=== PATIENT | male | born 1955 | race Two or more races ===

== ENCOUNTER 2018-11-25 14:22 | Inpatient (IN) | payer MEDICAID ==
[~2018-11-25] VITALS: Ht 172.7 cm; Wt 90.7 kg
[2018-11-25 14:31] VITALS: BP 196/98
--- NOTE | 2018-11-25 14:38 | NUR ---
ED Nurse Note: AMBULATED IN TO ER WITH PT'S DUE TO NASAL CONGESTION X 3 WEEKS. PER PT, HE HAD SOB SINCE LAST NIGHT. RA 98% WITH RR OF 23. INITIAL HIGH BP OF 196/98. DR. Lowry AT THE BEDSIDE.
--- NOTE | 2018-11-25 14:44 | NUR ---
ED Nurse Note: BLOOD SPECIMENS SENT DOWN TO THE LAB.
[2018-11-25 14:46] VITALS: BP 152/92
--- NOTE | 2018-11-25 14:46 | NUR ---
ED Nurse Note: BP IS NOW DOWN TO 152/92. PT DENIES SOB AND CP
[2018-11-25 14:56] LABS: BASOPHILS % (AUTO) 1.6 % (0.0-2.0); EOSINOPHILS % (AUTO) 4.1 % (0.0-3.0); HEMATOCRIT 51.1 % (42.0-52.0); HEMOGLOBIN 17.7 G/DL (14.2-18.0); LYMPHOCYTES % (AUTO) 35.2 % (20.0-45.0); MEAN CORPUSCULAR VOLUME 93 FL (80-99); NEUTROPHILS % (AUTO) 51.2 % (45.0-75.0); PLATELET COUNT 272 K/UL (150-450); RED BLOOD COUNT 5.48 M/UL (4.70-6.10); RED CELL DISTRIBUTION WIDTH 11.6 % (11.6-14.8); WHITE BLOOD COUNT 7.8 K/UL (4.8-10.8)
[2018-11-25 15:05] LABS: ANION GAP 10 mmol/L (5-15); BLOOD UREA NITROGEN 13 mg/dL (7-18); CALCIUM 9.7 MG/DL (8.5-10.1); CARBON DIOXIDE 27 MMOL/L (21-32); CHLORIDE 104 MMOL/L (98-107); CREATININE 1.1 MG/DL (0.55-1.30); POTASSIUM 3.9 MMOL/L (3.5-5.1); SODIUM 141 MMOL/L (136-145)
[2018-11-25 15:18] LABS: ALANINE AMINOTRANSFERASE 44 U/L (12-78); ALBUMIN 3.5 G/DL (3.4-5.0); ALBUMIN/GLOBULIN RATIO 0.8 (1.0-2.7); ALKALINE PHOSPHATASE 118 U/L (46-116); ASPARTATE AMINO TRANSFERASE 30 U/L (15-37); BILIRUBIN,TOTAL 0.6 MG/DL (0.2-1.0); CKMB 1.3 NG/ML (0.0-3.6); CREATINE KINASE 96 U/L (26-308)
--- NOTE | 2018-11-25 15:19 | Diagnostic Imaging Report ---
Indication: Chest pain Technique: One view of the chest Comparison: none Findings: Body habitus limits evaluation. Prominent pericardial fat pad is noted. No definite infiltrates, effusions, or congestion. The heart size is upper limits of normal. Impression: No definite acute process
[2018-11-25 15:47] VITALS: BP 128/77
--- NOTE | 2018-11-25 15:48 | NUR ---
ED Nurse Note: TELEPHONE REPORT GIVEN TO CARMEN ACEVES FROM [facility]. PER CARMEN ACEVES, CAN TRANSFER THE PT IN FIVE MIN.
[2018-11-25 16:00] VITALS: BP_SYST 128; BP_SYST 153; BP_DIAS 77; BP_DIAS 92
[2018-11-25] MEDS ORDERED: Aspirin Baby 81mg ORAL ONE (16:00)
--- NOTE | 2018-11-25 16:03 | NUR ---
TRANSFER TO FLOOR: Patient transferred to ROOM 210-1 as ordered via rney with environmental monitoring specialist. Report given to CARMEN Oconnor. Belongings and money with the pt. No s/s of distress. Skin intact.
--- NOTE | 2018-11-25 16:05 | NUR ---
NURSE NOTES: Received patient via gurney from ER, report given by CARMEN Vega. Patient is awake and oriented x4. No signs and symptoms of acute distress noted at this time. Heart monitor on. Bed in lowest position with two side rails up, break engaged. Call light and bed side table within reach. Will continue to monitor and follow the plan of care.
--- NOTE | 2018-11-25 16:19 | Emergency Room Report ---
History of Present Illness General Chief Complaint: Upper Respiratory Illness Source: Patient Present Illness HPI Patient presents with complaints of chest pain or shortness of breath Patient reports that he has been using Afrin for over the past 10 days He feels that it improves his nasal congestion However now is having increased palpitations Patient presents with fairly hypertensive and tachycardic Denies any back or flank pain denies any headache Denies any vomiting or diarrhea patient does not take any other medications Allergies: Coded Allergies: No Known Allergies (Unverified , 11/25/18) Patient History Past Medical History: see triage record Pertinent Family History: none Reviewed Nursing Documentation: PMH: Agreed; PSxH: Agreed Nursing Documentation-PMH Past Medical History: No Stated History Review of Systems All Other Systems: negative except mentioned in HPI Physical Exam Vital Signs Date Time Temp Pulse Resp B/P (MAP) Pulse Ox O2 Delivery O2 Flow Rate FiO2 11/25/18 14:30 97.5 91 22 196/98 97 Room Air Sp02 EP Interpretation: reviewed, normal General Appearance: no apparent distress Head: normocephalic, atraumatic Eyes: bilateral eye PERRL, bilateral eye EOMI ENT: hearing grossly normal, normal pharynx, TMs + canals normal, uvula midline Neck: full range of motion, supple, no meningismus, no bony tend Respiratory: lungs clear, normal breath sounds, no rhonchi, no respiratory distress, no retraction, no accessory muscle use Cardiovascular #1: normal peripheral pulses, no edema, no gallop, no JVD, no murmur, tachycardia Gastrointestinal: normal bowel sounds, non tender, soft, no mass, no organomegaly, non-distended, no guarding, no hernia, no pulsatile mass, no rebound Genitourinary: no CVA tenderness Musculoskeletal: normal inspection Neurologic: oriented x3, responsive, edge banding machine offbearer III-XII nml as tested, motor strength/ tone normal, sensory intact Psychiatric: mood/affect normal Skin: normal color, no rash, warm/dry, palpation normal Lymphatic: normal inspection, no adenopathy Medical Decision Making Diagnostic Impression: Primary Impression: HYPERTENSIVE MALIGNANCY ER Course Patient is a fairly complex patient with multiple differential to consideration including but not limited to cardiac cardiopulmonary and vascular emergencies Patient also appears to have had a significant reaction to the medication At this time continues to significantly improve throughout his stay Given the initial presentation and the tachycardic and hypotensive findings however patient will require further inpatient care Labs Test 11/25/18 14:40 11/25/18 15:00 White Blood Count 7.8 K/UL (4.8-10.8) Red Blood Count 5.48 M/UL (4.70-6.10) Hemoglobin 17.7 G/DL (14.2-18.0) Hematocrit 51.1 % (42.0-52.0) Mean Corpuscular Volume 93 FL (80-99) Mean Corpuscular Hemoglobin 32.3 PG (27.0-31.0) Mean Corpuscular Hemoglobin Concent 34.6 G/DL (32.0-36.0) Red Cell Distribution Width 11.6 % (11.6-14.8) Platelet Count 272 K/UL (150-450) Mean Platelet Volume 6.9 FL (6.5-10.1) Neutrophils (%) (Auto) 51.2 % (45.0-75.0) Lymphocytes (%) (Auto) 35.2 % (20.0-45.0) Monocytes (%) (Auto) 8.0 % (1.0-10.0) Eosinophils (%) (Auto) 4.1 % (0.0-3.0) Basophils (%) (Auto) 1.6 % (0.0-2.0) Sodium Level 141 MMOL/L (136-145) Potassium Level 3.9 MMOL/L (3.5-5.1) Chloride Level 104 MMOL/L (98-107) Carbon Dioxide Level 27 MMOL/L (21-32) Anion Gap 10 mmol/L (5-15) Blood Urea Nitrogen 13 mg/dL (7-18) Creatinine 1.1 MG/DL (0.55-1.30) Estimat Glomerular Filtration Rate > 60 mL/min (>60) Glucose Level 132 MG/DL (74-106) Calcium Level 9.7 MG/DL (8.5-10.1) Total Bilirubin 0.6 MG/DL (0.2-1.0) Aspartate Amino Transf (AST/SGOT) 30 U/L (15-37) Alanine Aminotransferase (ALT/SGPT) 44 U/L (12-78) Alkaline Phosphatase 118 U/L (46-116) Total Creatine Kinase 96 U/L (26-308) Creatine Kinase MB 1.3 NG/ML (0.0-3.6) Creatine Kinase MB Relative Index 1.3 Troponin I 0.000 ng/mL (0.000-0.056) Pro-B-Type Natriuretic Peptide 65 pg/mL (0-125) Total Protein 7.7 G/DL (6.4-8.2) Albumin 3.5 G/DL (3.4-5.0) Globulin 4.2 g/dL Albumin/Globulin Ratio 0.8 (1.0-2.7) Lipase 149 U/L (73-393) Urine Opiates Screen Negative (NEGATIVE) Urine Barbiturates Screen Negative (NEGATIVE) Phencyclidine (PCP) Screen Negative (NEGATIVE) Urine Amphetamines Screen Negative (NEGATIVE) Urine Benzodiazepines Screen Negative (NEGATIVE) Urine Cocaine Screen Negative (NEGATIVE) Urine Marijuana (THC) Screen Negative (NEGATIVE) EKG Diagnostic Results Rate: normal Rhythm: NSR ST Segments: other - Nonspecific ST T-wave changes Rhythm Strip Diag. Results EP Interpretation: yes Rate: 105 Rhythm: no PVC's, no ectopy, other - Sinus tach Chest X-Ray Diagnostic Results Chest X-Ray Diagnostic Results : Chest X-Ray Ordered: Yes # of Views/Limited/Complete: 1 View Indication: Chest Pain EP Interpretation: Yes Interpretation: no consolidation, no effusion, no pneumothorax Impression: No acute disease Electronically Signed by: Nia Abdalla DO Last Vital Signs Date Time Temp Pulse Resp B/P (MAP) Pulse Ox O2 Delivery O2 Flow Rate FiO2 11/25/18 16:02 98.9 77 29 128/77 98 Room Air Status: improved Disposition: ADMITTED INPATIENT Condition: Serious Scripts No Active Prescriptions or Reported Meds Referrals: [facility],REFERRING (PCP) Nia Abdalla DO Nov 25, 2018 16:19
[2018-11-25] MEDS ORDERED: HydrALAZINE 25mg tab ORAL PRN (17:15)
[2018-11-25] MEDS ORDERED: Albuterol/Ipratropium 3ml neb HHN PRN (17:45)
[2018-11-25] MEDS ORDERED: Nitroglycerin Subl 0.4mg tab SL PRN (17:45)
--- NOTE | 2018-11-25 19:05 | Pulmonology Progress Note ---
Assessment/Plan Assessment/Plan Pulmonary Consultation HPI Patient admitted with Hypertensive Urgency, admits to using Sudafed frequently, presents with complaints of chest pain and some shortness of breath Patient reports that he has been using Afrin for over the past 10 days He feels that it improves his nasal congestion, however now is having increased palpitations Denies any back or flank pain denies any headache Denies any vomiting or diarrhea patient does not take any other medications Allergies: No Known Allergies Past Medical History: Nasal Congestion All Other Systems: negative except mentioned in HPI Physical Exam Vital Signs Date Time Temp Pulse Resp B/P (MAP) Pulse Ox O2 Delivery O2 Flow Rate FiO2 11/25/18 14:30 97.5 91 22 196/98 97 Room Air General Appearance: no apparent distress Head: normocephalic, atraumatic Eyes: bilateral eye PERRL, bilateral eye EOMI ENT: hearing grossly normal, normal pharynx, TMs + canals normal, uvula midline Neck: full range of motion, supple, no meningismus, no bony tend Respiratory: lungs clear, normal breath sounds, no rhonchi, no respiratory distress, no retraction, no accessory muscle use Cardiovascular: Chief Complaint: Upper Respiratory Illness Source: Patient Present Illness [facility] Patient presents with complaints of chest pain or shortness of breath Patient reports that he has been using Afrin for over the past 10 days He feels that it improves his nasal congestion However now is having increased palpitations Patient presents with fairly hypertensive and tachycardic Denies any back or flank pain denies any headache Denies any vomiting or diarrhea patient does not take any other medications Allergies: Coded Allergies: No Known Allergies (Unverified , 11/25/18) Patient History Past Medical History: see triage record Pertinent Family History: none Reviewed Nursing Documentation: PMH: Agreed; PSxH: Agreed Nursing Documentation-PMH Past Medical History: No Stated History Review of Systems All Other Systems: negative except mentioned in HPI Physical Exam Vital Signs Noted Date Time Temp Pulse Resp B/P (MAP) Pulse Ox O2 Delivery O2 Flow Rate FiO2 11/25/18 14:30 97.5 91 22 196/98 97 Room Air General Appearance: no apparent distress Head: normocephalic, atraumatic Eyes: bilateral eye PERRL, bilateral eye EOMI ENT: hearing grossly normal, normal pharynx, TMs + canals normal, uvula midline Neck: full range of motion, supple, no meningismus, no bony tend Respiratory: lungs clear, normal breath sounds, no rhonchi, no respiratory distress, no retraction, no accessory muscle use Cardiovascular HS1, HS2 Normal, normal peripheral pulses, no edema, no gallop, no JVD, no murmur, tachycardia Gastrointestinal: normal bowel sounds, non tender, soft, no mass, no organomegaly, non-distended, no guarding, no hernia, no pulsatile mass, no rebound Genitourinary: no CVA tenderness Musculoskeletal: normal inspection Neurologic: oriented x3, responsive, chute operator III-XII nml as tested, motor strength/ tone normal, sensory intact Psychiatric: mood/affect normal Skin: normal color, no rash, warm/dry, palpation normal Lymphatic: normal inspection, no adenopathy Impression: Hypertensive Urgency Nasal Congestion Clear CXR Plan: Antihypertensives Flonase PRN HHN O2 PRN PPX Monitor Labs Labs Test 11/25/18 14:40 11/25/18 15:00 White Blood Count 7.8 K/UL (4.8-10.8) Red Blood Count 5.48 M/UL (4.70-6.10) Hemoglobin 17.7 G/DL (14.2-18.0) Hematocrit 51.1 % (42.0-52.0) Mean Corpuscular Volume 93 FL (80-99) Mean Corpuscular Hemoglobin 32.3 PG (27.0-31.0) Mean Corpuscular Hemoglobin Concent 34.6 G/DL (32.0-36.0) Red Cell Distribution Width 11.6 % (11.6-14.8) Platelet Count 272 K/UL (150-450) Mean Platelet Volume 6.9 FL (6.5-10.1) Neutrophils (%) (Auto) 51.2 % (45.0-75.0) Lymphocytes (%) (Auto) 35.2 % (20.0-45.0) Monocytes (%) (Auto) 8.0 % (1.0-10.0) Eosinophils (%) (Auto) 4.1 % (0.0-3.0) Basophils (%) (Auto) 1.6 % (0.0-2.0) Sodium Level 141 MMOL/L (136-145) Potassium Level 3.9 MMOL/L (3.5-5.1) Chloride Level 104 MMOL/L (98-107) Carbon Dioxide Level 27 MMOL/L (21-32) Anion Gap 10 mmol/L (5-15) Blood Urea Nitrogen 13 mg/dL (7-18) Creatinine 1.1 MG/DL (0.55-1.30) Estimat Glomerular Filtration Rate > 60 mL/min (>60) Glucose Level 132 MG/DL (74-106) Calcium Level 9.7 MG/DL (8.5-10.1) Total Bilirubin 0.6 MG/DL (0.2-1.0) Aspartate Amino Transf (AST/SGOT) 30 U/L (15-37) Alanine Aminotransferase (ALT/SGPT) 44 U/L (12-78) Alkaline Phosphatase 118 U/L (46-116) Total Creatine Kinase 96 U/L (26-308) Creatine Kinase MB 1.3 NG/ML (0.0-3.6) Creatine Kinase MB Relative Index 1.3 Troponin I 0.000 ng/mL (0.000-0.056) Pro-B-Type Natriuretic Peptide 65 pg/mL (0-125) Total Protein 7.7 G/DL (6.4-8.2) Albumin 3.5 G/DL (3.4-5.0) Globulin 4.2 g/dL Albumin/Globulin Ratio 0.8 (1.0-2.7) Lipase 149 U/L (73-393) Urine Opiates Screen Negative (NEGATIVE) Urine Barbiturates Screen Negative (NEGATIVE) Phencyclidine (PCP) Screen Negative (NEGATIVE) Urine Amphetamines Screen Negative (NEGATIVE) Urine Benzodiazepines Screen Negative (NEGATIVE) Urine Cocaine Screen Negative (NEGATIVE) Urine Marijuana (THC) Screen Negative (NEGATIVE) EKG: Rate: normal Rhythm: NSR ST Segments: other - Nonspecific ST T-wave changes Chest X-Ray Interpretation: no consolidation, no effusion, no pneumothorax Impression: No acute disease Lymphatic: normal inspection, no adenopathy Subjective ROS Limited/Unobtainable: No Allergies: Coded Allergies: No Known Allergies (Unverified , 11/25/18) Objective Last 24 Hour Vital Signs Date Time Temp Pulse Resp B/P (MAP) Pulse Ox O2 Delivery O2 Flow Rate FiO2 11/25/18 17:24 84 153/92 11/25/18 16:35 Nasal Cannula 2.0 11/25/18 16:02 98.9 77 29 128/77 98 Room Air 11/25/18 16:00 86 11/25/18 16:00 97.7 84 20 153/92 (112) 95 11/25/18 15:47 98.9 77 29 128/77 98 Room Air 11/25/18 14:46 89 25 152/92 98 Room Air 11/25/18 14:38 90 23 Room Air 11/25/18 14:31 99.2 90 23 196/98 98 Room Air 11/25/18 14:30 97.5 91 22 196/98 97 Room Air Laboratory Tests 11/25/18 14:40: White Blood Count 7.8, Red Blood Count 5.48, Hemoglobin 17.7, Hematocrit 51.1, Mean Corpuscular Volume 93, Mean Corpuscular Hemoglobin 32.3H, Mean Corpuscular Hemoglobin Concent 34.6, Red Cell Distribution Width 11.6, Platelet Count 272, Mean Platelet Volume 6.9, Neutrophils (%) (Auto) 51.2, Lymphocytes (%) (Auto) 35.2, Monocytes (%) (Auto) 8.0, Eosinophils (%) (Auto) 4.1H, Basophils (%) (Auto ) 1.6, Sodium Level 141, Potassium Level 3.9, Chloride Level 104, Carbon Dioxide Level 27, Anion Gap 10, Blood Urea Nitrogen 13, Creatinine 1.1, Estimat Glomerular Filtration Rate > 60, Glucose Level 132H, Calcium Level 9.7, Total Bilirubin 0.6, Aspartate Amino Transf (AST/SGOT) 30, Alanine Aminotransferase ( ALT/SGPT) 44, Alkaline Phosphatase 118H, Total Creatine Kinase 96, Creatine Kinase MB 1.3, Creatine Kinase MB Relative Index 1.3, Troponin I 0.000, Pro-B- Type Natriuretic Peptide 65, Total Protein 7.7, Albumin 3.5, Globulin 4.2, Albumin/Globulin Ratio 0.8L, Lipase 149 11/25/18 15:00: Urine Opiates Screen Negative, Urine Barbiturates Screen Negative, Phencyclidine (PCP) Screen Negative, Urine Amphetamines Screen Negative, Urine Benzodiazepines Screen Negative, Urine Cocaine Screen Negative, Urine Marijuana (THC) Screen Negative Current Medications Medications (Trade) Dose Ordered Sig/Scooby Route PRN Reason Start Time Stop Time Status Last Admin Dose Admin Acetaminophen (Tylenol) 650 mg Q6H PRN ORAL Mild Pain/Temp > 100.5 11/25/18 17:45 12/25/18 17:44 Albuterol/ Ipratropium (Albuterol/ Ipratropium) 3 ml Q4H PRN HHN Shortness of Breath 11/25/18 17:45 11/30/18 17:44 Amlodipine Besylate (Norvasc) 5 mg DAILY ORAL 11/26/18 09:00 12/26/18 08:59 Fluticasone Propionate (Flonase) 1 spray TWICE A DAY NASAL 11/25/18 20:00 12/25/18 19:59 Heparin Sodium (Porcine) (Heparin 5000 units/ml) 5,000 units EVERY 12 HOURS SUBQ 11/25/18 21:00 12/25/18 20:59 Hydralazine HCl (Apresoline) 25 mg Q6H PRN ORAL hypertension 11/25/18 17:15 12/25/18 17:14 Nitroglycerin (Ntg) 0.4 mg Q5M PRN SL Prn Chest Pain 11/25/18 17:45 12/25/18 17:44 Ondansetron HCl (Zofran) 4 mg Q4H PRN IVP Nausea & Vomiting 11/25/18 17:45 12/25/18 17:44 Yordy Almeida MD Nov 25, 2018 19:05
--- NOTE | 2018-11-25 19:22 | NUR ---
HAND-OFF: Report given to CARMEN Knapp.
--- NOTE | 2018-11-25 19:30 | NUR ---
NURSE NOTES: Received report from CARMEN Marrero. Pt is awake and resting in bed. In no acute distress. Bed in lowest position, call light within reach. Will continue plan of care.
[2018-11-25 20:00] VITALS: BP 147/97
--- NOTE | 2018-11-25 20:23 | Infectious Diseases Prog Note ---
Assessment/Plan Problems: (1) Viral upper respiratory illness Assessment & Plan: with nasal congestion , rule out influenza , will screen for influenza A&B , monitor off antibiotics (2) Acute rhinitis Assessment & Plan: due to the above, with congestion, recommend local steroids , avoid afrin or pseudo Phed for now , follow up with ENT (3) Chest pain in adult Assessment & Plan: rule out zoster , or pneumonia , will repeat CXR in am , and order vzv serology IgM (4) HYPERTENSIVE MALIGNANCY Assessment & Plan: continue blood pressure control with close monitor in tele Subjective Allergies: Coded Allergies: No Known Allergies (Unverified , 11/25/18) Objective Vital Signs Last 24 Hour Vital Signs Date Time Temp Pulse Resp B/P (MAP) Pulse Ox O2 Delivery O2 Flow Rate FiO2 11/25/18 17:24 84 153/92 11/25/18 16:35 Nasal Cannula 2.0 11/25/18 16:02 98.9 77 29 128/77 98 Room Air 11/25/18 16:00 86 11/25/18 16:00 97.7 84 20 153/92 (112) 95 11/25/18 15:47 98.9 77 29 128/77 98 Room Air 11/25/18 14:46 89 25 152/92 98 Room Air 11/25/18 14:38 90 23 Room Air 11/25/18 14:31 99.2 90 23 196/98 98 Room Air 11/25/18 14:30 97.5 91 22 196/98 97 Room Air Height (Feet): 5 Height (Inches): 8.00 Weight (Pounds): 200 Laboratory Tests Test 11/25/18 14:40 11/25/18 15:00 White Blood Count 7.8 K/UL (4.8-10.8) Red Blood Count 5.48 M/UL (4.70-6.10) Hemoglobin 17.7 G/DL (14.2-18.0) Hematocrit 51.1 % (42.0-52.0) Mean Corpuscular Volume 93 FL (80-99) Mean Corpuscular Hemoglobin 32.3 PG (27.0-31.0) H Mean Corpuscular Hemoglobin Concent 34.6 G/DL (32.0-36.0) Red Cell Distribution Width 11.6 % (11.6-14.8) Platelet Count 272 K/UL (150-450) Mean Platelet Volume 6.9 FL (6.5-10.1) Neutrophils (%) (Auto) 51.2 % (45.0-75.0) Lymphocytes (%) (Auto) 35.2 % (20.0-45.0) Monocytes (%) (Auto) 8.0 % (1.0-10.0) Eosinophils (%) (Auto) 4.1 % (0.0-3.0) H Basophils (%) (Auto) 1.6 % (0.0-2.0) Sodium Level 141 MMOL/L (136-145) Potassium Level 3.9 MMOL/L (3.5-5.1) Chloride Level 104 MMOL/L (98-107) Carbon Dioxide Level 27 MMOL/L (21-32) Anion Gap 10 mmol/L (5-15) Blood Urea Nitrogen 13 mg/dL (7-18) Creatinine 1.1 MG/DL (0.55-1.30) Estimat Glomerular Filtration Rate > 60 mL/min (>60) Glucose Level 132 MG/DL (74-106) H Calcium Level 9.7 MG/DL (8.5-10.1) Total Bilirubin 0.6 MG/DL (0.2-1.0) Aspartate Amino Transf (AST/SGOT) 30 U/L (15-37) Alanine Aminotransferase (ALT/SGPT) 44 U/L (12-78) Alkaline Phosphatase 118 U/L (46-116) H Total Creatine Kinase 96 U/L (26-308) Creatine Kinase MB 1.3 NG/ML (0.0-3.6) Creatine Kinase MB Relative Index 1.3 Troponin I 0.000 ng/mL (0.000-0.056) Pro-B-Type Natriuretic Peptide 65 pg/mL (0-125) Total Protein 7.7 G/DL (6.4-8.2) Albumin 3.5 G/DL (3.4-5.0) Globulin 4.2 g/dL Albumin/Globulin Ratio 0.8 (1.0-2.7) L Lipase 149 U/L (73-393) Urine Opiates Screen Negative (NEGATIVE) Urine Barbiturates Screen Negative (NEGATIVE) Phencyclidine (PCP) Screen Negative (NEGATIVE) Urine Amphetamines Screen Negative (NEGATIVE) Urine Benzodiazepines Screen Negative (NEGATIVE) Urine Cocaine Screen Negative (NEGATIVE) Urine Marijuana (THC) Screen Negative (NEGATIVE) Current Medications Medications (Trade) Dose Ordered Sig/Scooby Route PRN Reason Start Time Stop Time Status Last Admin Dose Admin Acetaminophen (Tylenol) 650 mg Q6H PRN ORAL Mild Pain/Temp > 100.5 11/25/18 17:45 12/25/18 17:44 Albuterol/ Ipratropium (Albuterol/ Ipratropium) 3 ml Q4H PRN HHN Shortness of Breath 11/25/18 17:45 11/30/18 17:44 Amlodipine Besylate (Norvasc) 5 mg DAILY ORAL 11/26/18 09:00 12/26/18 08:59 Fluticasone Propionate (Flonase) 1 spray TWICE A DAY NASAL 11/25/18 20:00 12/25/18 19:59 Heparin Sodium (Porcine) (Heparin 5000 units/ml) 5,000 units EVERY 12 HOURS SUBQ 11/25/18 21:00 12/25/18 20:59 Hydralazine HCl (Apresoline) 25 mg Q6H PRN ORAL hypertension 11/25/18 17:15 12/25/18 17:14 Nitroglycerin (Ntg) 0.4 mg Q5M PRN SL Prn Chest Pain 11/25/18 17:45 12/25/18 17:44 Ondansetron HCl (Zofran) 4 mg Q4H PRN IVP Nausea & Vomiting 11/25/18 17:45 12/25/18 17:44 Tania Quintero M.D. Nov 25, 2018 20:23
[2018-11-25] MEDS: Flonase Nasal Inhaler 16gm NASAL SCH (20:40)
[2018-11-25] MEDS: Heparin 5000 units/ml inj SUBQ SCH (20:43)
[2018-11-25 21:24] LABS: APPEARANCE,URINE CLEAR; BILIRUBIN, URINE NEGATIVE (NEGATIVE); GLUCOSE, URINE (UA) NEGATIVE (NEGATIVE); KETONES,URINE NEGATIVE (NEGATIVE); LEUKOCYTE ESTERASE ,URINE 1+ (NEGATIVE); NITRITE,URINE NEGATIVE (NEGATIVE); PH,URINE 6 (4.5-8.0); PROTEIN,URINE NEGATIVE (NEGATIVE); UROBILINOGEN,URINE 1 MG/DL (0.0-1.0)
[2018-11-25 21:26] LABS: COLOR,URINE YELLOW
[2018-11-26] VITALS: BP 135/93
[2018-11-26 04:00] VITALS: BP 135/91
--- NOTE | 2018-11-26 07:20 | NUR ---
HAND-OFF: Report given to CARMEN Marrero.
--- NOTE | 2018-11-26 07:21 | NUR ---
NURSE NOTES: Report received from Ra MORALES. Pt is resting in bed in stable condition. Pt is awake, alert, and oriented x4. Pt is on room air and no complain of shortness of breath. No acute distress noted at this time. Bed placed in lowest position with brake engaged, side rails up x2. Call light and side table placed within reach. Will continue to monitor and follow plan of care.
[2018-11-26 08:00] VITALS: BP 134/85
[2018-11-26] MEDS: Flonase Nasal Inhaler 16gm NASAL SCH ×2 (08:19→17:02)
[2018-11-26] MEDS: Heparin 5000 units/ml inj SUBQ SCH ×2 (08:21→20:47)
[2018-11-26 08:39] LABS: BASOPHILS % (AUTO) 1.3 % (0.0-2.0); EOSINOPHILS % (AUTO) 4.8 % (0.0-3.0); HEMATOCRIT 48.8 % (42.0-52.0); HEMOGLOBIN 16.6 G/DL (14.2-18.0); MEAN CORPUSCULAR VOLUME 94 FL (80-99); MONOCYTES % (AUTO) 7.6 % (1.0-10.0); NEUTROPHILS % (AUTO) 48.2 % (45.0-75.0); PLATELET COUNT 254 K/UL (150-450); RED BLOOD COUNT 5.17 M/UL (4.70-6.10); RED CELL DISTRIBUTION WIDTH 11.9 % (11.6-14.8)
--- NOTE | 2018-11-26 08:51 | History & Physical ---
History and Physical History & Physicial seen and Examined. Dictation completed. 850 AM november 26 Evelyne Cevallos MD Nov 26, 2018 08:51
--- NOTE | 2018-11-26 08:52 | General Progress Note ---
Assessment/Plan Assessment/Plan Dictatino in progress A/P: 1- hypertensive Urgency Plan: optimize PO medication Echo trop Subjective Allergies: Coded Allergies: No Known Allergies (Unverified , 11/25/18) Objective Last 24 Hour Vital Signs Date Time Temp Pulse Resp B/P (MAP) Pulse Ox O2 Delivery O2 Flow Rate FiO2 11/26/18 08:19 74 134/85 11/26/18 08:00 97.9 74 20 134/85 (101) 94 11/26/18 04:00 98.6 76 20 135/91 (106) 98 11/26/18 04:00 76 11/26/18 00:00 98.4 74 18 135/93 (107) 96 11/26/18 00:00 74 11/25/18 21:00 Room Air 11/25/18 20:00 98.4 83 20 147/97 (114) 98 11/25/18 20:00 83 11/25/18 17:24 84 153/92 11/25/18 16:35 Nasal Cannula 2.0 11/25/18 16:02 98.9 77 29 128/77 98 Room Air 11/25/18 16:00 86 11/25/18 16:00 97.7 84 20 153/92 (112) 95 11/25/18 15:47 98.9 77 29 128/77 98 Room Air 11/25/18 14:46 89 25 152/92 98 Room Air 11/25/18 14:38 90 23 Room Air 11/25/18 14:31 99.2 90 23 196/98 98 Room Air 11/25/18 14:30 97.5 91 22 196/98 97 Room Air Intake and Output 11/25/18 11/26/18 19:00 07:00 Intake Total 240 ml 120 ml Balance 240 ml 120 ml Intake Oral 240 ml 120 ml # Voids 2 Laboratory Tests 11/25/18 14:40: White Blood Count 7.8, Red Blood Count 5.48, Hemoglobin 17.7, Hematocrit 51.1, Mean Corpuscular Volume 93, Mean Corpuscular Hemoglobin 32.3H, Mean Corpuscular Hemoglobin Concent 34.6, Red Cell Distribution Width 11.6, Platelet Count 272, Mean Platelet Volume 6.9, Neutrophils (%) (Auto) 51.2, Lymphocytes (%) (Auto) 35.2, Monocytes (%) (Auto) 8.0, Eosinophils (%) (Auto) 4.1H, Basophils (%) (Auto ) 1.6, Sodium Level 141, Potassium Level 3.9, Chloride Level 104, Carbon Dioxide Level 27, Anion Gap 10, Blood Urea Nitrogen 13, Creatinine 1.1, Estimat Glomerular Filtration Rate > 60, Glucose Level 132H, Calcium Level 9.7, Total Bilirubin 0.6, Aspartate Amino Transf (AST/SGOT) 30, Alanine Aminotransferase ( ALT/SGPT) 44, Alkaline Phosphatase 118H, Total Creatine Kinase 96, Creatine Kinase MB 1.3, Creatine Kinase MB Relative Index 1.3, Troponin I 0.000, Pro-B- Type Natriuretic Peptide 65, Total Protein 7.7, Albumin 3.5, Globulin 4.2, Albumin/Globulin Ratio 0.8L, Lipase 149 11/25/18 15:00: Urine Opiates Screen Negative, Urine Barbiturates Screen Negative, Phencyclidine (PCP) Screen Negative, Urine Amphetamines Screen Negative, Urine Benzodiazepines Screen Negative, Urine Cocaine Screen Negative, Urine Marijuana (THC) Screen Negative 11/25/18 20:55: Urine Color Yellow, Urine Appearance Clear, Urine pH 6, Urine Specific Wheeler 1.020, Urine Protein Negative, Urine Glucose (UA) Negative, Urine Ketones Negative, Urine Blood Negative, Urine Nitrite Negative, Urine Bilirubin Negative , Urine Urobilinogen 1H, Urine Leukocyte Esterase 1+H, Urine RBC 0-2H, Urine WBC 0-2, Urine Squamous Epithelial Cells None, Urine Bacteria Few 11/25/18 21:45: Troponin I 0.000, Varicella-Zoster IgM Antibody [Pending] 11/26/18 06:07: White Blood Count 8.0, Red Blood Count 5.17, Hemoglobin 16.6, Hematocrit 48.8, Mean Corpuscular Volume 94, Mean Corpuscular Hemoglobin 32.2H, Mean Corpuscular Hemoglobin Concent 34.1, Red Cell Distribution Width 11.9, Platelet Count 254, Mean Platelet Volume 6.1L, Neutrophils (%) (Auto) 48.2, Lymphocytes (%) (Auto) 38.0, Monocytes (%) (Auto) 7.6, Eosinophils (%) (Auto) 4.8H, Basophils (%) (Auto ) 1.3, Sodium Level [Pending], Potassium Level [Pending], Chloride Level [ Pending], Carbon Dioxide Level [Pending], Blood Urea Nitrogen [Pending], Creatinine [Pending], Estimat Glomerular Filtration Rate [Pending], Glucose Level [Pending], Calcium Level [Pending], Troponin I [Pending], Pro-B-Type Natriuretic Peptide [Pending] Height (Feet): 5 Height (Inches): 8.00 Weight (Pounds): 200 Evelyne Cevallos MD Nov 26, 2018 08:52
[2018-11-26 09:33] LABS: ANION GAP 12 mmol/L (5-15); BLOOD UREA NITROGEN 13 mg/dL (7-18); CALCIUM 9.6 MG/DL (8.5-10.1); CARBON DIOXIDE 25 MMOL/L (21-32); CHLORIDE 104 MMOL/L (98-107); POTASSIUM 3.9 MMOL/L (3.5-5.1); SODIUM 141 MMOL/L (136-145)
--- NOTE | 2018-11-26 10:12 | Diagnostic Imaging Report ---
EXAM: XR Chest, 1 View CLINICAL HISTORY: Chest pain TECHNIQUE: Frontal view of the chest. COMPARISON: Chest x-ray dated 11/25/18 FINDINGS: Lungs: Unremarkable. The lungs appear clear. No focal consolidation. Pleural space: Unremarkable. The costophrenic angles are sharp. No visible pneumothorax. Heart: Unremarkable. No cardiomegaly. Mediastinum: Unremarkable. Bones/joints: Unremarkable. Tubes, lines and devices: Telemetry leads overlie the thorax. IMPRESSION: No acute findings.
--- NOTE | 2018-11-26 11:56 | Consultation ---
History of Present Illness General Chief Complaint: Upper Respiratory Illness Referring physician: Dr. Cevallos Reason for Consultation: Dyspnea Present Illness HPI 63 y/o w/ chronic sinusitis with chronic nasal congestion using afrin with palpitations and hypertension. Seen in ED and BP stabilized. Attributed to afrin. Having sinus pain/pressure with drainage. This has been going on chronically. No fever or chills. Had some shortness of breath when he had the palpitations. CXR clear. Allergies: Coded Allergies: No Known Allergies (Unverified , 11/25/18) Medication History No Active Prescriptions or Reported Meds Patient History History Provided By: Patient, Medical Record Healthcare decision maker N Resuscitation status Full Code Advanced Directive on File Review of Systems Constitutional: Reports: malaise Eye: Reports: nose congestion, discharge ENT: Reports: nose congestion, nasal discharge Respiratory: Reports: shortness of breath Cardiovascular: Reports: chest pain Gastrointestinal: Reports: no symptoms Genitourinary: Reports: no symptoms Musculoskeletal: Reports: no symptoms Skin: Reports: no symptoms Psychiatric: Reports: no symptoms Neurological: Reports: no symptoms Physical Exam General Appearance: no apparent distress HEENT: mucous membranes moist Respiratory/Chest: lungs clear Cardiovascular/Chest: normal rate Abdomen: non tender Extremities: no edema Last 24 Hour Vital Signs Date Time Temp Pulse Resp B/P (MAP) Pulse Ox O2 Delivery O2 Flow Rate FiO2 11/26/18 09:00 Room Air 11/26/18 08:19 74 134/85 11/26/18 08:00 97.9 74 20 134/85 (101) 94 11/26/18 08:00 77 11/26/18 04:00 98.6 76 20 135/91 (106) 98 11/26/18 04:00 76 11/26/18 00:00 98.4 74 18 135/93 (107) 96 11/26/18 00:00 74 11/25/18 21:00 Room Air 11/25/18 20:00 98.4 83 20 147/97 (114) 98 11/25/18 20:00 83 11/25/18 17:24 84 153/92 11/25/18 16:35 Nasal Cannula 2.0 11/25/18 16:02 98.9 77 29 128/77 98 Room Air 11/25/18 16:00 86 11/25/18 16:00 97.7 84 20 153/92 (112) 95 11/25/18 15:47 98.9 77 29 128/77 98 Room Air 11/25/18 14:46 89 25 152/92 98 Room Air 11/25/18 14:38 90 23 Room Air 11/25/18 14:31 99.2 90 23 196/98 98 Room Air 11/25/18 14:30 97.5 91 22 196/98 97 Room Air Intake and Output 11/25/18 11/26/18 19:00 07:00 Intake Total 240 ml 120 ml Balance 240 ml 120 ml Intake Oral 240 ml 120 ml # Voids 2 Laboratory Tests Test 11/25/18 14:40 11/25/18 15:00 11/25/18 20:55 11/25/18 21:45 White Blood Count 7.8 K/UL (4.8-10.8) Red Blood Count 5.48 M/UL (4.70-6.10) Hemoglobin 17.7 G/DL (14.2-18.0) Hematocrit 51.1 % (42.0-52.0) Mean Corpuscular Volume 93 FL (80-99) Mean Corpuscular Hemoglobin 32.3 PG (27.0-31.0) H Mean Corpuscular Hemoglobin Concent 34.6 G/DL (32.0-36.0) Red Cell Distribution Width 11.6 % (11.6-14.8) Platelet Count 272 K/UL (150-450) Mean Platelet Volume 6.9 FL (6.5-10.1) Neutrophils (%) (Auto) 51.2 % (45.0-75.0) Lymphocytes (%) (Auto) 35.2 % (20.0-45.0) Monocytes (%) (Auto) 8.0 % (1.0-10.0) Eosinophils (%) (Auto) 4.1 % (0.0-3.0) H Basophils (%) (Auto) 1.6 % (0.0-2.0) Sodium Level 141 MMOL/L (136-145) Potassium Level 3.9 MMOL/L (3.5-5.1) Chloride Level 104 MMOL/L (98-107) Carbon Dioxide Level 27 MMOL/L (21-32) Anion Gap 10 mmol/L (5-15) Blood Urea Nitrogen 13 mg/dL (7-18) Creatinine 1.1 MG/DL (0.55-1.30) Estimat Glomerular Filtration Rate > 60 mL/min (>60) Glucose Level 132 MG/DL (74-106) H Calcium Level 9.7 MG/DL (8.5-10.1) Total Bilirubin 0.6 MG/DL (0.2-1.0) Aspartate Amino Transf (AST/SGOT) 30 U/L (15-37) Alanine Aminotransferase (ALT/SGPT) 44 U/L (12-78) Alkaline Phosphatase 118 U/L (46-116) H Total Creatine Kinase 96 U/L (26-308) Creatine Kinase MB 1.3 NG/ML (0.0-3.6) Creatine Kinase MB Relative Index 1.3 Troponin I 0.000 ng/mL (0.000-0.056) 0.000 ng/mL (0.000-0.056) Pro-B-Type Natriuretic Peptide 65 pg/mL (0-125) Total Protein 7.7 G/DL (6.4-8.2) Albumin 3.5 G/DL (3.4-5.0) Globulin 4.2 g/dL Albumin/Globulin Ratio 0.8 (1.0-2.7) L Lipase 149 U/L (73-393) Urine Opiates Screen Negative (NEGATIVE) Urine Barbiturates Screen Negative (NEGATIVE) Phencyclidine (PCP) Screen Negative (NEGATIVE) Urine Amphetamines Screen Negative (NEGATIVE) Urine Benzodiazepines Screen Negative (NEGATIVE) Urine Cocaine Screen Negative (NEGATIVE) Urine Marijuana (THC) Screen Negative (NEGATIVE) Urine Color Yellow Urine Appearance Clear Urine pH 6 (4.5-8.0) Urine Specific [place] 1.020 (1.005-1.035) Urine Protein Negative (NEGATIVE) Urine Glucose (UA) Negative (NEGATIVE) Urine Ketones Negative (NEGATIVE) Urine Blood Negative (NEGATIVE) Urine Nitrite Negative (NEGATIVE) Urine Bilirubin Negative (NEGATIVE) Urine Urobilinogen 1 MG/DL (0.0-1.0) H Urine Leukocyte Esterase 1+ (NEGATIVE) H Urine RBC 0-2 /HPF (0 - 0) H Urine WBC 0-2 /HPF (0 - 0) Urine Squamous Epithelial Cells None /LPF (NONE/OCC) Urine Bacteria Few /HPF (NONE) Varicella-Zoster IgM Antibody Pending Test 3/2/19 06:07 White Blood Count 8.0 K/UL (4.8-10.8) Red Blood Count 5.17 M/UL (4.70-6.10) Hemoglobin 16.6 G/DL (14.2-18.0) Hematocrit 48.8 % (42.0-52.0) Mean Corpuscular Volume 94 FL (80-99) Mean Corpuscular Hemoglobin 32.2 PG (27.0-31.0) H Mean Corpuscular Hemoglobin Concent 34.1 G/DL (32.0-36.0) Red Cell Distribution Width 11.9 % (11.6-14.8) Platelet Count 254 K/UL (150-450) Mean Platelet Volume 6.1 FL (6.5-10.1) L Neutrophils (%) (Auto) 48.2 % (45.0-75.0) Lymphocytes (%) (Auto) 38.0 % (20.0-45.0) Monocytes (%) (Auto) 7.6 % (1.0-10.0) Eosinophils (%) (Auto) 4.8 % (0.0-3.0) H Basophils (%) (Auto) 1.3 % (0.0-2.0) Sodium Level 141 MMOL/L (136-145) Potassium Level 3.9 MMOL/L (3.5-5.1) Chloride Level 104 MMOL/L (98-107) Carbon Dioxide Level 25 MMOL/L (21-32) Anion Gap 12 mmol/L (5-15) Blood Urea Nitrogen 13 mg/dL (7-18) Creatinine 1.0 MG/DL (0.55-1.30) Estimat Glomerular Filtration Rate > 60 mL/min (>60) Glucose Level 94 MG/DL (74-106) Calcium Level 9.6 MG/DL (8.5-10.1) Troponin I 0.000 ng/mL (0.000-0.056) Pro-B-Type Natriuretic Peptide 41 pg/mL (0-125) Microbiology Date/Time Source Procedure Growth Status 11/25/18 23:35 Nasopharynx Influenza Types A,B Antigen (CARMEL) - Final Complete Height (Feet): 5 Height (Inches): 8.00 Weight (Pounds): 200 Medications Current Medications Medications (Trade) Dose Ordered Sig/Scooby Route PRN Reason Start Time Stop Time Status Last Admin Dose Admin Acetaminophen (Tylenol) 650 mg Q6H PRN ORAL Mild Pain/Temp > 100.5 11/25/18 17:45 12/25/18 17:44 Albuterol/ Ipratropium (Albuterol/ Ipratropium) 3 ml Q4H PRN HHN Shortness of Breath 11/25/18 17:45 11/30/18 17:44 Amlodipine Besylate (Norvasc) 5 mg DAILY ORAL 11/26/18 09:00 12/26/18 08:59 11/26/18 08:19 Fluticasone Propionate (Flonase) 1 spray TWICE A DAY NASAL 11/25/18 20:00 12/25/18 19:59 11/26/18 08:19 Heparin Sodium (Porcine) (Heparin 5000 units/ml) 5,000 units EVERY 12 HOURS SUBQ 11/25/18 21:00 12/25/18 20:59 11/26/18 08:21 Hydralazine HCl (Apresoline) 25 mg Q6H PRN ORAL hypertension 11/25/18 17:15 12/25/18 17:14 Nitroglycerin (Ntg) 0.4 mg Q5M PRN SL Prn Chest Pain 11/25/18 17:45 12/25/18 17:44 Ondansetron HCl (Zofran) 4 mg Q4H PRN IVP Nausea & Vomiting 11/25/18 17:45 12/25/18 17:44 Assessment/Plan Assessment/Plan Problem List: 1. Chest pain 2. Palpitations 3. Hypertensive urgency 4. Nasal congestion 5. Chronic sinusitis Plan: -avoid afrin -flonase 2 sprays each nostril daily -consider astelin as outpatient -CT sinuses -monitor chest pain Ion Muñoz MD Nov 26, 2018 11:56
[2018-11-26 12:00] VITALS: BP 138/93
--- NOTE | 2018-11-26 14:47 | Infectious Diseases Prog Note ---
Assessment/Plan Problems: (1) Viral upper respiratory illness Assessment & Plan: with nasal congestion , suspect rhinitis , screening for influenza A&B is negative , monitor off antibiotics (2) Acute rhinitis Assessment & Plan: due to the above, with congestion, continue local steroids , avoid afrin or pseudo Phed for now , follow up with ENT (3) Chest pain in adult Assessment & Plan: rule out zoster , no evidence of pneumonia on repeated CXR , await vzv serology IgM . monitor off antibiotics (4) HYPERTENSIVE MALIGNANCY Assessment & Plan: continue blood pressure control with close monitor in tele Subjective Constitutional: Reports: no symptoms HEENT: Reports: congestion Respiratory: Reports: no symptoms Breasts: Reports: no symptoms Cardiovascular: Reports: no symptoms Gastrointestinal/Abdominal: Reports: no symptoms Genitourinary: Reports: no symptoms Neurologic: Reports: no symptoms Psychiatric: Reports: no symptoms Skin: Reports: no symptoms Endocrine: Reports: no symptoms Hematologic: Reports: no symptoms Musculoskeletal: Reports: no symptoms Allergies: Coded Allergies: No Known Allergies (Unverified , 11/25/18) Objective Vital Signs Last 24 Hour Vital Signs Date Time Temp Pulse Resp B/P (MAP) Pulse Ox O2 Delivery O2 Flow Rate FiO2 11/26/18 12:00 98.6 77 18 138/93 (108) 94 11/26/18 12:00 74 11/26/18 09:00 Room Air 11/26/18 08:19 74 134/85 11/26/18 08:00 97.9 74 20 134/85 (101) 94 11/26/18 08:00 77 11/26/18 04:00 98.6 76 20 135/91 (106) 98 11/26/18 04:00 76 11/26/18 00:00 98.4 74 18 135/93 (107) 96 11/26/18 00:00 74 11/25/18 21:00 Room Air 11/25/18 20:00 98.4 83 20 147/97 (114) 98 11/25/18 20:00 83 11/25/18 17:24 84 153/92 11/25/18 16:35 Nasal Cannula 2.0 11/25/18 16:02 98.9 77 29 128/77 98 Room Air 11/25/18 16:00 86 11/25/18 16:00 97.7 84 20 153/92 (112) 95 11/25/18 15:47 98.9 77 29 128/77 98 Room Air 11/25/18 14:46 89 25 152/92 98 Room Air Height (Feet): 5 Height (Inches): 8.00 Weight (Pounds): 200 General Appearance: WD/WN, no acute distress HEENT: normocephalic, atraumatic, anicteric, mucous membranes moist Respiratory/Chest: chest wall non-tender, lungs clear, normal breath sounds, no respiratory distress, no accessory muscle use Cardiovascular: normal peripheral pulses, normal rate, regular rhythm, no gallop/murmur, no JVD Abdomen: normal bowel sounds, soft, non tender, no organomegaly, non distended , no mass, no scars Extremities: no cyanosis, no clubbing Skin: no rash, no lesions, no ulcers Neurologic/Psychiatric: alert, responsive Lymphatic: no neck adenopathy, no groin adenopathy Musculoskeletal: normal muscle bulk, no effusion Microbiology Date/Time Source Procedure Growth Status 11/25/18 23:35 Nasopharynx Influenza Types A,B Antigen (CARMEL) - Final Complete Laboratory Tests Test 11/25/18 15:00 11/25/18 20:55 11/25/18 21:45 11/26/18 06:07 Urine Opiates Screen Negative (NEGATIVE) Urine Barbiturates Screen Negative (NEGATIVE) Phencyclidine (PCP) Screen Negative (NEGATIVE) Urine Amphetamines Screen Negative (NEGATIVE) Urine Benzodiazepines Screen Negative (NEGATIVE) Urine Cocaine Screen Negative (NEGATIVE) Urine Marijuana (THC) Screen Negative (NEGATIVE) Urine Color Yellow Urine Appearance Clear Urine pH 6 (4.5-8.0) Urine Specific [place] 1.020 (1.005-1.035) Urine Protein Negative (NEGATIVE) Urine Glucose (UA) Negative (NEGATIVE) Urine Ketones Negative (NEGATIVE) Urine Blood Negative (NEGATIVE) Urine Nitrite Negative (NEGATIVE) Urine Bilirubin Negative (NEGATIVE) Urine Urobilinogen 1 MG/DL (0.0-1.0) H Urine Leukocyte Esterase 1+ (NEGATIVE) H Urine RBC 0-2 /HPF (0 - 0) H Urine WBC 0-2 /HPF (0 - 0) Urine Squamous Epithelial Cells None /LPF (NONE/OCC) Urine Bacteria Few /HPF (NONE) Troponin I 0.000 ng/mL (0.000-0.056) 0.000 ng/mL (0.000-0.056) Varicella-Zoster IgM Antibody Pending White Blood Count 8.0 K/UL (4.8-10.8) Red Blood Count 5.17 M/UL (4.70-6.10) Hemoglobin 16.6 G/DL (14.2-18.0) Hematocrit 48.8 % (42.0-52.0) Mean Corpuscular Volume 94 FL (80-99) Mean Corpuscular Hemoglobin 32.2 PG (27.0-31.0) H Mean Corpuscular Hemoglobin Concent 34.1 G/DL (32.0-36.0) Red Cell Distribution Width 11.9 % (11.6-14.8) Platelet Count 254 K/UL (150-450) Mean Platelet Volume 6.1 FL (6.5-10.1) L Neutrophils (%) (Auto) 48.2 % (45.0-75.0) Lymphocytes (%) (Auto) 38.0 % (20.0-45.0) Monocytes (%) (Auto) 7.6 % (1.0-10.0) Eosinophils (%) (Auto) 4.8 % (0.0-3.0) H Basophils (%) (Auto) 1.3 % (0.0-2.0) Sodium Level 141 MMOL/L (136-145) Potassium Level 3.9 MMOL/L (3.5-5.1) Chloride Level 104 MMOL/L (98-107) Carbon Dioxide Level 25 MMOL/L (21-32) Anion Gap 12 mmol/L (5-15) Blood Urea Nitrogen 13 mg/dL (7-18) Creatinine 1.0 MG/DL (0.55-1.30) Estimat Glomerular Filtration Rate > 60 mL/min (>60) Glucose Level 94 MG/DL (74-106) Calcium Level 9.6 MG/DL (8.5-10.1) Pro-B-Type Natriuretic Peptide 41 pg/mL (0-125) Current Medications Medications (Trade) Dose Ordered Sig/Scooby Route PRN Reason Start Time Stop Time Status Last Admin Dose Admin Acetaminophen (Tylenol) 650 mg Q6H PRN ORAL Mild Pain/Temp > 100.5 11/25/18 17:45 12/25/18 17:44 Albuterol/ Ipratropium (Albuterol/ Ipratropium) 3 ml Q4H PRN HHN Shortness of Breath 11/25/18 17:45 11/30/18 17:44 Amlodipine Besylate (Norvasc) 5 mg DAILY ORAL 11/26/18 09:00 12/26/18 08:59 11/26/18 08:19 Fluticasone Propionate (Flonase) 1 spray TWICE A DAY NASAL 11/25/18 20:00 12/25/18 19:59 11/26/18 08:19 Heparin Sodium (Porcine) (Heparin 5000 units/ml) 5,000 units EVERY 12 HOURS SUBQ 11/25/18 21:00 12/25/18 20:59 11/26/18 08:21 Hydralazine HCl (Apresoline) 25 mg Q6H PRN ORAL hypertension 11/25/18 17:15 12/25/18 17:14 Nitroglycerin (Ntg) 0.4 mg Q5M PRN SL Prn Chest Pain 11/25/18 17:45 12/25/18 17:44 Ondansetron HCl (Zofran) 4 mg Q4H PRN IVP Nausea & Vomiting 11/25/18 17:45 12/25/18 17:44 Tania Quintero M.D. Nov 26, 2018 14:47
[2018-11-26 16:00] VITALS: BP 139/80
--- NOTE | 2018-11-26 19:00 | History and Physical Report ---
DATE OF ADMISSION: 11/25/2018 SOURCE OF INFORMATION: The patient and EMR. HISTORY OF PRESENT ILLNESS: The patient is a 63-year-old male with unremarkable past medical history, who presented with the upper respiratory symptoms for the last couple of days. Denies any fever or chills. Initial evaluation in the emergency room shows uncontrolled blood pressure. Initial chest x-ray unremarkable. The patient is complaining of mild headache. Denies any chest pain. Denies any shortness of breath. PAST MEDICAL AND SURGICAL HISTORY: Denies. ALLERGIES: NKDA. FAMILY HISTORY: Reviewed and noncontributory. CURRENT HOSPITAL MEDICATIONS: Including but not limited to DuoNeb, amlodipine, hydralazine, nitroglycerin. SOCIAL HISTORY: The patient denies history of illicit drug abuse, smoking, or IV drug abuse. The patient reported that he lives with and children. PHYSICAL EXAMINATION: VITAL SIGNS: Blood pressure 190/98, respiratory rate 18, temperature 98.2, pulse oximetry 98% on room air. HEAD AND NECK: Atraumatic and normocephalic. CHEST: Clear to auscultation. HEART: S1, S2. Regular rate and rhythm. ABDOMEN: Soft. No organomegaly. MUSCULOSKELETAL: No gross focal motor deficit. NEUROLOGIC: Awake, alert, and oriented x3. LABORATORY DATA: Labs dated November 25, shows WBC 7.8, hemoglobin 17.7, platelet count of 270,000. Sodium 140, potassium 3.9, BUN 13, and creatinine 1.1. AST and ALT are within normal limits. Lipase 140. Urinalysis unremarkable. ASSESSMENT AND PLAN: 1. Hypertensive urgency. 2. Upper respiratory tract symptoms, unlikely to be bacterial. 3. Hypertension. 4. GI and DVT prophylaxis. PLAN OF CARE: We will initiate a p.o. blood pressure medication and we will optimize. Obtain a 2D echo. Time of this dictation does not reflect the actual time of encounter. Evelyne Cevallos M.D. DR: Shey JOB#: [id number] CC:
--- NOTE | 2018-11-26 19:45 | NUR ---
HAND-OFF: Report given to CARMEN Knapp.
[2018-11-26 20:00] VITALS: BP 146/95
[2018-11-27] VITALS: BP 123/53
--- NOTE | 2018-11-27 00:42 | NUR ---
NURSE NOTES: Received pt from CARMEN Oconnor. Addendum: 11/27/18 at 0044 by FRANKLIN CABRERA RN NURSE NOTES: Received pt from CARMEN Oconnor. 11/26/18 1947
--- NOTE | 2018-11-27 01:00 | Consultation ---
DATE OF CONSULTATION: 11/26/2018 INFECTIOUS DISEASE CONSULTATION CONSULTING PHYSICIAN: Tania Quintero M.D. REFERRING PHYSICIAN: Evelyne Cevallos M.D. REASON FOR CONSULTATION: Upper respiratory infection with acute rhinitis, recommendation for antimicrobial treatment. HISTORY OF PRESENT ILLNESS: The patient is a 63-year-old male with no significant past medical history, who presented to [facility] Emergency Room with chest pain and shortness of breath. The patient has had nasal congestion and dry cough for the last 3 weeks and he has been using local Afrin in his nose for the last couple of weeks with no significant improvement. The patient developed palpitation and he was hypertensive and tachycardic and started complaining of chest pain with shortness of breath. No fever or chills. No recent travel or sick contact. The patient was admitted through the emergency room shortly after evaluation with blood pressure of 196/98 to control his blood pressure and Infectious Disease consultation was requested for antimicrobial treatment and further management. REVIEW OF SYSTEMS: A 14 point of system reviewed were all negative apart from the one I mentioned above in my H and P. PAST MEDICAL HISTORY: Negative. FAMILY HISTORY: Negative. PAST SURGICAL HISTORY: Negative. SOCIAL HISTORY: The patient lives at home with his . Denied using any drugs, tobacco, or alcohol. ALLERGIES: He has no known allergy. MEDICATIONS: The patient is on Norvasc, heparin, Flonase, Zofran, Tylenol, albuterol, nitroglycerin, and hydralazine. PHYSICAL EXAMINATION: VITAL SIGNS: Temperature 98.9, pulse 77, respirations 29, blood pressure 128/77, saturation 98% on room air. GENERAL: This is a middle-aged male, lying in bed, congested, awake, alert, not in acute distress. HEENT: Normocephalic and atraumatic. Pupils reactive to light equally. Moist oral mucosa. No exudate or thrush. Red congested throat. Nares are patent with no discharge or pus. No facial tenderness. NECK: Supple. No lymphadenopathy. CARDIOVASCULAR: Regular rate and rhythm. No murmur or gallop. LUNGS: Clear bilaterally. No wheezing or rhonchi. Normal breathing efforts. ABDOMEN: Soft, nontender, nondistended. Normal bowel sounds. No hepatosplenomegaly or ascites. EXTREMITIES: No edema or cyanosis. SKIN: No rash or hives. No ulceration. NEUROLOGIC: Nonfocal. LABORATORY DATA: Showed white count of 7.8, hemoglobin of 17.7, platelet count of 272,000. BUN of 13 and creatinine of 1.1. CK-MB of 1.3. Urinalysis showed +1 leukocyte esterase, wbc's 0-2, and few bacteria. IMAGING: Chest x-ray on November 25 showed no definite acute process. ASSESSMENT AND RECOMMENDATION: 1. Viral upper respiratory infection with nasal congestion, rule out influenza. We will screen for influenza A and B. Monitor off antibiotics for now. 2. Acute rhinitis, suspect due to the above. Recommend topical steroid. Avoid Afrin or Sudafed for now to prevent rebound. 3. 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 Continue blood pressure medication as per primary team. Monitor chest pain. Thank you for the consult. ID will continue to follow. Please feel free to call with any question. Tania Quinteor M.D. DR: Papito JOB#: [id number] CC:
[2018-11-27 04:00] VITALS: BP 151/81
--- NOTE | 2018-11-27 04:00 | NUR ---
HAND-OFF: Report given to Selina Charge Nurse.
--- NOTE | 2018-11-27 05:44 | NUR ---
HAND-OFF: Report given to nurse Jazmín.Pt.denies chest pain..
--- NOTE | 2018-11-27 06:53 | NUR ---
NURSE NOTES: Report received from Abigail MORALES. Pt is resting in bed in stable condition. Pt is awake, alert, and oriented x4. Pt is on room air and no complain of shortness of breath. Patient will use 2 liter nasal Cannula with humidifier as PRN.No acute distress noted at this time. Bed placed in lowest position with brake engaged, side rails up x2. Call light and side table placed within reach. Will continue to monitor and follow plan of care.
[2018-11-27 07:17] LABS: HEMATOCRIT 47.4 % (42.0-52.0); HEMOGLOBIN 16.3 G/DL (14.2-18.0); MEAN CORPUSCULAR VOLUME 94 FL (80-99); PLATELET COUNT 253 K/UL (150-450); RED BLOOD COUNT 5.07 M/UL (4.70-6.10); RED CELL DISTRIBUTION WIDTH 11.8 % (11.6-14.8)
[2018-11-27 07:39] LABS: ANION GAP 10 mmol/L (5-15); BLOOD UREA NITROGEN 16 mg/dL (7-18); CALCIUM 9.4 MG/DL (8.5-10.1); CARBON DIOXIDE 25 MMOL/L (21-32); CHLORIDE 106 MMOL/L (98-107); POTASSIUM 3.7 MMOL/L (3.5-5.1); SODIUM 141 MMOL/L (136-145)
[2018-11-27 08:00] VITALS: BP 133/88
[2018-11-27] MEDS: Flonase Nasal Inhaler 16gm NASAL SCH (08:35)
[2018-11-27] MEDS: Heparin 5000 units/ml inj SUBQ SCH (08:36)
--- NOTE | 2018-11-27 09:24 | NUR ---
CASE MANAGEMENT: REVIEW 63 YO M PRESENTED TO OUR ED FROM HOME CC: URI PMHx: NONE STATED SI: HYPERTENSIVE MALIGNANCY. T 97.5 HR 91 RR 22 B/P 196/98 SATS 97% ON RA INFLUENZA A&B (-) IS: CXR (Impression: No definite acute process) PATIENT ADMITTED TO TELE 11/25/2018 @ 1450 DCP: PATIENT TO BE DISCHARGED TO HOME ONCE MEDICALLY CLEARED. PLAN OF CARE: BREATHING TREATMENTS 11/27/2018 SI: HYPERTENSIVE MALIGNANCY. T 97.5 HR 91 RR 22 B/P 196/98 SATS 97% ON RA INFLUENZA A&B (-) IS: CXR (Impression: No definite acute process) PATIENT ADMITTED TO TELE 11/25/2018 @ 1450 DCP: PATIENT TO BE DISCHARGED TO HOME ONCE MEDICALLY CLEARED. PLAN OF CARE: BREATHING TREATMENTS 2D ECHO CT MAXILLOFACIAL Addendum: 11/28/18 at 1945 by Zoey Roberto CM INTERQUAL ESCALATED
[2018-11-27 12:00] VITALS: BP 146/87
--- NOTE | 2018-11-27 12:08 | Diagnostic Imaging Report ---
EXAM: CT Maxillofacial Without Intravenous Contrast CLINICAL HISTORY: Shortness of breath TECHNIQUE: Axial computed tomography images of the face without intravenous contrast. CTDI is 28.34 mGy and DLP is 597 mGy-cm. One or more of the following dose reduction techniques were used: automated exposure control, adjustment of the mA and/or kV according to patient size, use of iterative reconstruction technique. Coronal and sagittal reformatted images were created and reviewed. COMPARISON: No relevant prior studies available. FINDINGS: Bones/joints: No visible bone or nasal bone fracture. Minimal rightward nasal septal deviation. Soft tissues: Unremarkable. Orbits: Unremarkable. Bony orbits appear intact. Bilateral globes and intraconal soft tissues appear unremarkable. Sinuses: Mild mucosal thickening in the ethmoid air cells and in the left maxillary sinus. No air-fluid levels. IMPRESSION: Mild mucosal thickening in the ethmoid air cells and left maxillary sinus. No sinus air-fluid levels.
[2018-11-27] MEDS ORDERED: NORVASC5 MG ORAL (12:53)
--- NOTE | 2018-11-27 12:56 | Pulmonology Progress Note ---
Assessment/Plan Assessment/Plan Problem List: 1. Chest pain 2. Palpitations 3. Hypertensive urgency 4. Nasal congestion 5. Chronic sinusitis Plan: -avoid afrin -flonase 2 sprays each nostril daily -consider astelin as outpatient -monitor chest pain d/c planning Case d/w Dr. Cevallos Subjective ROS Limited/Unobtainable: No Interval Events: feels better w/flonase. CT sinus minimal disease. BP better Allergies: Coded Allergies: No Known Allergies (Unverified , 11/25/18) Objective Last 24 Hour Vital Signs Date Time Temp Pulse Resp B/P (MAP) Pulse Ox O2 Delivery O2 Flow Rate FiO2 11/27/18 12:00 98.2 74 20 146/87 (106) 96 11/27/18 09:00 Room Air 11/27/18 08:35 69 133/88 11/27/18 08:00 76 11/27/18 08:00 97.7 69 20 133/88 (103) 95 11/27/18 04:00 98.4 85 18 151/81 (104) 97 11/27/18 04:00 89 11/27/18 00:00 68 11/27/18 00:00 98.5 68 19 123/53 (76) 96 11/26/18 21:00 Room Air 11/26/18 20:00 98.2 88 18 146/95 (112) 96 11/26/18 20:00 88 11/26/18 16:00 74 18 97 Room Air 21 11/26/18 16:00 98.2 75 20 139/80 (99) 94 11/26/18 16:00 76 11/26/18 15:48 76 18 96 Room Air 21 Intake and Output 11/26/18 11/27/18 19:00 07:00 Intake Total 480 ml Output Total 210 ml Balance 270 ml Intake Oral 480 ml Output Urine Total 180 ml Stool Total 30 ml # Voids 3 2 # Bowel Movements 1 General Appearance: no acute distress HEENT: normocephalic, mucous membranes moist Respiratory/Chest: lungs clear Cardiovascular: normal rate Abdomen: soft, non tender Extremities: no edema Neurologic/Psychiatric: oriented x 3 Microbiology Date/Time Source Procedure Growth Status 11/25/18 14:50 Blood Blood Culture - Preliminary NO GROWTH AFTER 24 HOURS Resulted 11/25/18 14:40 Blood Blood Culture - Preliminary NO GROWTH AFTER 24 HOURS Resulted 11/25/18 23:35 Nasopharynx Influenza Types A,B Antigen (CARMEL) - Final Complete Laboratory Tests 11/27/18 06:40: White Blood Count 8.0, Red Blood Count 5.07, Hemoglobin 16.3, Hematocrit 47.4, Mean Corpuscular Volume 94, Mean Corpuscular Hemoglobin 32.2H, Mean Corpuscular Hemoglobin Concent 34.5, Red Cell Distribution Width 11.8, Platelet Count 253, Mean Platelet Volume 6.3L, Neutrophils (%) (Auto) , Lymphocytes (%) (Auto) , Monocytes (%) (Auto) , Eosinophils (%) (Auto) , Basophils (%) (Auto) , Differential Total Cells Counted 100, Neutrophils % (Manual) 48, Lymphocytes % ( Manual) 41, Monocytes % (Manual) 7, Eosinophils % (Manual) 4H, Basophils % ( Manual) 0, Band Neutrophils 0, Platelet Estimate Adequate, Platelet Morphology Normal, Red Blood Cell Morphology Normal, Sodium Level 141, Potassium Level 3.7 , Chloride Level 106, Carbon Dioxide Level 25, Anion Gap 10, Blood Urea Nitrogen 16, Creatinine 1.0, Estimat Glomerular Filtration Rate > 60, Glucose Level 100, Calcium Level 9.4 Current Medications Medications (Trade) Dose Ordered Sig/Scooby Route PRN Reason Start Time Stop Time Status Last Admin Dose Admin Acetaminophen (Tylenol) 650 mg Q6H PRN ORAL Mild Pain/Temp > 100.5 11/25/18 17:45 12/25/18 17:44 Albuterol/ Ipratropium (Albuterol/ Ipratropium) 3 ml Q4H PRN HHN Shortness of Breath 11/25/18 17:45 11/30/18 17:44 11/26/18 15:43 Amlodipine Besylate (Norvasc) 5 mg DAILY ORAL 11/26/18 09:00 12/26/18 08:59 11/27/18 08:35 Fluticasone Propionate (Flonase) 1 spray TWICE A DAY NASAL 11/25/18 20:00 12/25/18 19:59 11/27/18 08:35 Heparin Sodium (Porcine) (Heparin 5000 units/ml) 5,000 units EVERY 12 HOURS SUBQ 11/25/18 21:00 12/25/18 20:59 11/27/18 08:36 Hydralazine HCl (Apresoline) 25 mg Q6H PRN ORAL hypertension 11/25/18 17:15 12/25/18 17:14 Nitroglycerin (Ntg) 0.4 mg Q5M PRN SL Prn Chest Pain 11/25/18 17:45 12/25/18 17:44 Ondansetron HCl (Zofran) 4 mg Q4H PRN IVP Nausea & Vomiting 11/25/18 17:45 12/25/18 17:44 Ion Muñoz MD Nov 27, 2018 12:56
--- NOTE | 2018-11-27 13:20 | NUR ---
NURSE NOTES: Patient discharged home, self care per Dr. Cevallos's order. All discharge instructions explained to patient and , verbalizes understanding. ID band removed and placed in shredder. Iv removed, Heart monitor removed and returned to personnel monitor. Patient received all his belongings, he received a new prescription. Patient left the hospital in stable condition and with private car.
--- NOTE | 2018-11-28 10:23 | Cardiology Report ---
APPROVED REPORT EXAM: Two-dimensional and M-mode echocardiogram with Doppler and color Doppler. INDICATION Palpitations M-Mode DIMENSIONS IVSd1.4 (0.7-1.1cm)Left Atrium (MM)4.0 (1.6-4.0cm) LVDd3.7 (3.5-5.6cm)Aortic Root3.3 (2.0-3.7cm) PWd1.4 (0.7-1.1cm)Aortic Cusp Exc.2.4 (1.5-2.0cm) LVDs2.2 (2.5-4.0cm) PWs2.1 cm Normal left ventricular chamber size, systolic function and wall motion. Left ventricular ejection fraction estimated to be 60 %. Mild left ventricular hypertrophy. Anterior Echo-free space, may be due to pericardial fat or effusion. All other cardiac chamber sizes are within normal limits. Focal aortic valve sclerosis with adequate cusp excursion. Thickened mitral valve leaflets with normal excursion. Mild mitral annulus and aortic root calcification. Pulmonic valve not well visualized. Normal tricuspid valve structure. IVC is normal in size with physiological collapse. A color flow and spectral Doppler study was performed and revealed: No aortic regurgitation. No mitral regurgitation. Mitral diastolic velocities suggest mild left ventricular diastolic dysfunction (Grade I). Trace tricuspid regurgitation. Tricuspid systolic velocities suggests peak right ventricular systolic pressure of 15 mmHg. No pulmonic regurgitation present.
--- NOTE | 2018-11-29 09:54 | Discharge Summary ---
Discharge Summary Discharge Summary _ DATE OF ADMISSION: 11/25/2018 DATE OF DISCHARGE: 11/27/2018 DISCHARGED BY: Dr Cevallos REASON FOR ADMISSION: 63 years old male with chronic sinusitis and chronic nasal congestion, presented to emergency room with chest pain and shortness of breath. Patient reported using Afrin for the past 10 days. Patient reported palpitations. Upon evaluation patient was hypertensive, tachypneic and tachycardic. Blood pressure was 196/98. Laboratory workup was unremarkable. Troponin was negative. Pro BNP 65. EKG revealed sinus tachycardia no acute ischemic changes. Urine toxicology screen was negative. Chest x-ray revealed no acute cardiopulmonary pathology. In emergency department patient received hydralazine, aspirin and nitroglycerin. Patient was admitted to telemetry floor for further management. CONSULTANTS: pulmonary Dr. Muñoz ID specialist [facility]: Patient admitted to telemetry floor. Pulmonology and ID specialists consult were requested. Serial troponin were negative. EKG revealed sinus rhythm, no acute ischemic changes. Patient was ruled out for acute myocardial infarction. Echocardiogram revealed preserved ejection fraction of 60% with mild left ventricular hypertrophy. Right ventricular systolic pressure of 15. Blood pressure was was managed with calcium channel vane/Amlodipine. Blood pressure stabilized. DVT prophylaxis provided. Supplemental oxygen was on board as needed to keep pulse oximetry above 92%. Pulse oximetry was stable on room air. 9 pulmonary toilet was on board as well. Per order editor patient started on Flonase nasal spray Patient was recommended to avoid Afrin and pseudoephedrine, as contributing to hypertensive emergency. Fuel Retrofitting Technician recommended to consider Astelin as outpatient. Patient subsequently undergone maxillofacial CT, which revealed mild mucosal thickening in the ethmoid air cells and left maxillary sinus. No sinus air- fluid levels. ID specialist closely followed. Per ID specialist patient had viral upper respiratory illness manifested with nasal congestion. Influenza screen test was negative. Infectious disease specialist recommended to monitor patient off antibiotic. Intranasal steroids were continued. Patient was reinforced need to avoid Afrin and Pseudoephedrine. Patient was explained that use of Afrin or pseudoephedrine is not recommended for patient with elevated blood pressure; besides use is generally limited to 2- 3 days. Patient was recommended to follow-up with ENT specialist as outpatient. Chest x-ray revealed no evidence of pneumonia. Patient was checked for Varicella zoster virus serology IgM, results still pending. Chest pain resolved , and was likely due to hypertensive urgency. Patient clinically stabilized and was ready for discharge home. FINAL DIAGNOSES: Hypertensive urgency , likely due to prolonged use of Afrin Viral upper respiratory illness Acute rhinitis Chest pain probably due to hypertensive urgency-resolved Chronic sinusitis DISCHARGE MEDICATIONS: See Medication Reconciliation list. DISCHARGE INSTRUCTIONS: Patient was discharged home . Follow up with primary care provider in one week. Recommended outpatient follow up with ENT specialist. I have been assigned to dictate discharge summary for this account. I was not involved in the patient's management. Olivia Grant NP Nov 29, 2018 09:54
== END 2018-11-27 13:20 | disposition home or self-care (01) | DRG 199 ==
LOC: EMR 14:41 → 2E 14:50 → EDBEDREQ 15:19 → 2E 17:10
DX: I16.0 Hypertensive urgency (principal); J00 Acute nasopharyngitis [common cold]; T48.5X5A Adverse effect of other anti-common-cold drugs, initial encounter; J06.9 Acute upper respiratory infection, unspecified; J32.9 Chronic sinusitis, unspecified; R00.2 Palpitations
CPT/HCPCS: 36415; 70486; 71045; 80048; 80053; 80307; 81001; 82550; 82553; 83690; 83880; 84484; 85007; 85025; 86710; 86787; 87040; 93005; 93306; 94640; 99285; J7620

== ENCOUNTER 2018-11-30 14:23 | Emergency (ER) | payer MEDICAID ==
[~2018-11-30] VITALS: Ht 175.3 cm; Wt 108.9 kg
[~2018-11-30 14:23] MED LIST: NORVASC5 MG ORAL
[2018-11-30 14:33] VITALS: BP 139/96
--- NOTE | 2018-11-30 14:46 | Emergency Room Report ---
History of Present Illness General Chief Complaint: Dyspnea/Respdistress Source: Patient Present Illness HPI This is a 63-year-old male presented with increased shortness of breath. Patient a prior history of cigarette smoking and was recently hospitalized at [facility]. Patient said he quit approximately 6 months ago. Patient denies taking any inhalers. He denies any cough. He did not have any fever. Patient had chronically been using Afrin nasal spray. Patient was noted to have chronic sinusitis. Allergies: Coded Allergies: No Known Allergies (Unverified , 11/30/18) Patient History Reviewed Nursing Documentation: PMH: Agreed; PSxH: Agreed Nursing Documentation-PMH Past Medical History: No History, Except For Hx Cardiac Problems: No Hx Hypertension: Yes Hx Cancer: No Hx Gastrointestinal Problems: No Hx Neurological Problems: No Review of Systems All Other Systems: negative except mentioned in HPI Physical Exam Vital Signs Date Time Temp Pulse Resp B/P (MAP) Pulse Ox O2 Delivery O2 Flow Rate FiO2 11/30/18 14:25 98.2 81 20 139/96 96 Room Air Sp02 EP Interpretation: reviewed, normal General Appearance: normal inspection, well appearing, no apparent distress, alert, GCS 15 Head: atraumatic ENT: normal ENT inspection, hearing grossly normal, normal voice Neck: normal inspection, full range of motion, supple, no bony tend Respiratory: normal inspection, lungs clear, normal breath sounds, no respiratory distress, no retraction, no wheezing Cardiovascular #1: regular rate, rhythm, no edema Gastrointestinal: normal inspection, normal bowel sounds, non tender, soft, no guarding, no hernia Genitourinary: no CVA tenderness Musculoskeletal: normal inspection, back normal, normal range of motion Neurologic: normal inspection, alert, oriented x3, responsive, shorthand reporter III-XII nml as tested, speech normal Psychiatric: normal inspection, judgement/insight normal, mood/affect normal Skin: normal inspection, normal color, no rash Medical Decision Making Diagnostic Impression: Primary Impression: Anxiety ER Course Patient presented for chest discomfort. Differential diagnosis include was not limited to ACS, aortic dissection, pulmonary embolism among others. EKG interpreted by me showed normal sinus rhythm without acute ST or T wave changes. Patient was noted to have no dynamic EKG changes on repeat. Patient states have been having increased difficulty with sleeping. Patient advised sleep hygiene. Patient does not appear to be require any anxiety medications at this time. He does not appear to be responding to internal stimuli or have any acute psychiatric issue.Patient was advised outpatient cardiology follow- up. Patient was advised to return if he began having worsening condition or recurrent symptoms. EKG Diagnostic Results Rate: normal Rhythm: NSR ST Segments: no acute changes Last Vital Signs Date Time Temp Pulse Resp B/P (MAP) Pulse Ox O2 Delivery O2 Flow Rate FiO2 11/30/18 14:33 98.2 84 20 139/96 96 Room Air Status: improved Disposition: HOME, SELF-CARE Condition: Stable Scripts Aspirin (Aspirin) 81 Mg Tab.chew 81 MG PO DAILY, #30 TAB Prov: Roni Rosado MD 11/30/18 Roni Rosado MD Nov 30, 2018 14:46
[2018-11-30] MEDS ORDERED: Albuterol/Ipratropium 3ml neb HHN ONE (15:00)
--- NOTE | 2018-11-30 15:30 | NUR ---
ED Nurse Note:pt. came from home with c/o SOB and weakness, A/Ox4 ambulatory, no signs of distress noted, VSS, placed on cardia monitor, EKG done
[2018-11-30 16:20] VITALS: BP 128/87
--- NOTE | 2018-11-30 16:21 | NUR ---
ED Nurse Note:repeat EKG was done ,pt. received breathing treatment and VSS, continue monitor
[2018-11-30] MEDS ORDERED: ASPIRIN81 M3 PO (16:34)
[2018-11-30 16:39] VITALS: BP 128/87
--- NOTE | 2018-11-30 16:41 | NUR ---
ER DISCHARGE NOTE: Patient is cleared to be discharged per ERMD, pt is aox4, on room air, with stable vital signs. pt was given dc and prescription instructions, pt was able to verbalize understanding. pt is able to ambulate with steady gait. pt took all belongings.
== END 2018-11-30 17:03 | disposition home or self-care (01) ==
LOC: EMR 16:30
DX: F41.9 Anxiety disorder, unspecified (principal); I10 Essential (primary) hypertension; Z87.891 Personal history of nicotine dependence
CPT/HCPCS: 93005; 94664; 99284; J7620